=== PATIENT | female | born 1995 | race Two or more races ===

== ENCOUNTER 2018-10-12 17:06 | Emergency (ER) | payer BC ==
[~2018-10-12] VITALS: Ht 154.9 cm; Wt 59.0 kg
[2018-10-12 17:42] VITALS: BP 118/67
== END 2018-10-12 17:59 | disposition home or self-care (01) ==
LOC: ER 17:06
DX: S01.511D Laceration without foreign body of lip, subsequent encounter (principal); F17.200 Nicotine dependence, unspecified, uncomplicated; Z71.6 Tobacco abuse counseling; X58.XXXD Exposure to other specified factors, subsequent encounter
CPT/HCPCS: 99282; 99406; A6402

== ENCOUNTER 2023-01-20 21:16 | Emergency (ER) | payer BC, OTHER ==
[~2023-01-20] VITALS: Ht 167.6 cm; Wt 54.9 kg
[2023-01-20] MEDS ORDERED: IV NS 0.9% 1,000 ML BAG IV ONE (23:00)
[2023-01-20] MEDS ORDERED: MORPHINE SULFATE INJ 2 MG/ML DISP.SYRIN IV ONE (23:00)
[2023-01-20] MEDS ORDERED: ONDANSETRON HCL/PF 4 MG/2 ML VIAL IVP ONE (23:00)
[2023-01-20] MEDS ORDERED: ONDANSETRON HCL/PF 4 MG/2 ML VIAL ONE (23:12)
[2023-01-20] MEDS ORDERED: MORPHINE SULFATE INJ 2 MG/ML DISP.SYRIN ONE (23:12)
[2023-01-20 23:15] LABS: BASOPHILS # (AUTO) 0.1 K/uL (0.0-0.2); BASOPHILS % (AUTO) 0.9 % (0.0-2.0); EOSINOPHILS % (AUTO) 7.7 % (0.0-6.0); HEMATOCRIT 30 % (33-45); HEMOGLOBIN 9.6 g/dL (11.5-14.8); LYMPHOCYTES # (AUTO) 2.1 K/uL (0.8-4.8); LYMPHOCYTES % (AUTO) 15.3 % (20.0-44.0); MEAN CORPUSCULAR HEMOGLOBIN 27 PG (26.0-33.0); MEAN CORPUSCULAR HGB CONC 32 g/dl (31.0-36.0); MEAN CORPUSCULAR VOLUME 85 fL (82-100); MONOCYTES % (AUTO) 7.6 % (2.0-12.0); NEUTROPHILS # (AUTO) 9.3 K/uL (1.8-8.9); NEUTROPHILS % (AUTO) 68.5 % (43.0-81.0); PLATELET COUNT (AUTO) 694 K/uL (150-450); RED BLOOD CELL COUNT(AUTO) 3.57 MIL/uL (4.0-5.2); RED CELL DISTRIBUTION WIDTH 15.1 % (11.5-15.0); WHITE BLOOD COUNT (AUTO) 13.6 K/uL (4.3-11.0)
[2023-01-20 23:33] LABS: BILIRUBIN,TOTAL 0.1 mg/dL (0.2-1.0); CALCIUM, SERUM 8.9 mg/dL (8.5-10.1); TOTAL PROTEIN, SERUM 6.6 g/dL (6.4-8.2)
[2023-01-21] MEDS ORDERED: CT SWABBABLE VALVE TRANS SET 1 EA INFUS.SET MC ONE (00:10)
[2023-01-21] MEDS ORDERED: IV NS 0.9% 250 ML IV ONE (00:10)
[2023-01-21] MEDS ORDERED: IOHEXOL-300 100 ML VIAL IV ONE (00:10)
[2023-01-21 00:46] LABS: APPEARANCE,URINE CLEAR (CLEAR); BILIRUBIN,URINE NEGATIVE (NEGATIVE); BLOOD, URINE NEGATIVE Ery/uL (NEGATIVE); COLOR,URINE YELLOW (YELLOW); KETONES,URINE NEGATIVE (NEGATIVE); LEUKOCYTE ESTERASE ,URINE NEGATIVE (NEGATIVE); NITRITE, URINE NEGATIVE (NEGATIVE); PH,URINE 6.5 (5.0-8.0); PREGNANCY TEST URINE QUAL NEGATIVE (NEGATIVE); PROTEIN,URINE NEGATIVE (NEGATIVE); UGLUCOSE NEGATIVE (NEGATIVE); UROBILINOGEN,URINE 0.2 EU/dL (0.2)
[2023-01-21] MEDS ORDERED: predniSONE 50 MG TABLET PO ONE (01:30)
[2023-01-21] MEDS ORDERED: predniSONE 20 MG TABLET ONE (02:08)
[2023-01-21] MEDS ORDERED: ACETAMINOPHEN ES 500 MG TABLET PO ONE (02:30)
[2023-01-21] MEDS ORDERED: ASPIRIN/ACETAMINOPHEN/CAFFEINE 1 EACH TABLET PO PRN (02:30)
[2023-01-21] MEDS ORDERED: ACETAMINOPHEN ES 500 MG TABLET ONE (02:31)
[2023-01-21] MEDS ORDERED: ONDA4TAB5 PO (04:12)
[2023-01-21] MEDS ORDERED: HYDR-3980 PO (04:12)
[2023-01-21] MEDS ORDERED: PRED50TA PO (04:12)
[2023-01-21 04:26] VITALS: BP 112/79; TEMP 98.5; O2SAT 99
== END 2023-01-21 04:27 | disposition home or self-care (01) ==
LOC: EDBD 21:20 → ER 21:20
DX: K51.90 Ulcerative colitis, unspecified, without complications (principal); R10.30 Lower abdominal pain, unspecified; F17.200 Nicotine dependence, unspecified, uncomplicated
CPT/HCPCS: 99285; 74177; 96374; 96361; 96375; 85025; 80048; 83690; 80076; 36415; 84703; 81003; J2405; J7030; J2270; J7050; Q9967

== ENCOUNTER 2024-04-05 01:52 | Emergency (ER) | payer BC, OTHER ==
[~2024-04-05] VITALS: Ht 157.5 cm; Wt 51.3 kg
[~2024-04-05 01:52] MED LIST: HYDR-3980 PO; ONDA4TAB5 PO; PRED50TA PO
[2024-04-05] MEDS ORDERED: ONDANSETRON HCL/PF 4 MG/2 ML VIAL ONE (03:27)
[2024-04-05] MEDS: ONDANSETRON HCL/PF - ER 4 MG/2 ML VIAL IV ONE (03:28)
[2024-04-05] MEDS: MORPHINE SULFATE INJ 2 MG/ML DISP.SYRIN IV ONE (03:28)
[2024-04-05] MEDS ORDERED: MORPHINE SULFATE INJ 2 MG/ML DISP.SYRIN ONE (03:28)
[2024-04-05] MEDS: IV NS 0.9% 1,000 ML BAG IV ONE (03:28)
[2024-04-05 03:34] LABS: BASOPHILS # (AUTO) 0.1 K/uL (0.0-0.2); BASOPHILS % (AUTO) 0.4 % (0.0-2.0); HEMATOCRIT 30 % (33-45); HEMOGLOBIN 9.9 g/dL (11.5-14.8); LYMPHOCYTES % (AUTO) 6.1 % (20.0-44.0); MEAN CORPUSCULAR HEMOGLOBIN 28 PG (26.0-33.0); MEAN CORPUSCULAR HGB CONC 33 g/dl (31.0-36.0); MEAN CORPUSCULAR VOLUME 84 fL (82-100); MONOCYTES # (AUTO) 0.9 K/uL (0.1-1.30); MONOCYTES % (AUTO) 5.5 % (2.0-12.0); NEUTROPHILS # (AUTO) 14.8 K/uL (1.8-8.9); PLATELET COUNT (AUTO) 872 K/uL (150-450); RED CELL DISTRIBUTION WIDTH 18.5 % (11.5-15.0); WHITE BLOOD COUNT (AUTO) 16.8 K/uL (4.3-11.0)
[2024-04-05 03:36] LABS: APPEARANCE,URINE CLEAR (CLEAR); BILIRUBIN,URINE NEGATIVE (NEGATIVE); BLOOD, URINE 1+ Ery/uL (NEGATIVE); COLOR,URINE YELLOW (YELLOW); KETONES,URINE NEGATIVE (NEGATIVE); LEUKOCYTE ESTERASE ,URINE NEGATIVE (NEGATIVE); NITRITE, URINE NEGATIVE (NEGATIVE); PROTEIN,URINE TRACE mg/dl (NEGATIVE); UGLUCOSE TRACE mg/dL (NEGATIVE); UROBILINOGEN,URINE 0.2 EU/dL (0.2)
[2024-04-05 03:37] LABS: PREGNANCY TEST URINE QUAL NEGATIVE (NEGATIVE)
[2024-04-05 03:52] LABS: ALBUMIN 3.1 g/dL (3.4-5.0); BILIRUBIN,TOTAL 0.1 mg/dL (0.2-1.0); CALCIUM, SERUM 8.8 mg/dL (8.5-10.1); CREATININE 1.7 mg/dL (0.6-1.3); POTASSIUM 4.9 mmol/L (3.5-5.1); TOTAL PROTEIN, SERUM 7.5 g/dL (6.4-8.2)
[2024-04-05 04:46] LABS: ADD URINE CULTURE NO; BACTERIA,URINE 1+ /HPF (None Seen); MUCUS,URINE Few /LPF (None Seen); WBC,URINE NONE SEEN /HPF (0-3)
[2024-04-05 05:35] LABS: ANISOCYTOSIS 1+; BAND % (MANUAL) 15 % (0.0-5.0); LYMPHOCYTES % (MANUAL) 11 % (16-48); MONOCYTES % (MANUAL) 8 % (0-11.0); NEUTROPHILS % (MANUAL) 66 (42-76); PLATELET ESTIMATE INCREASED
[2024-04-05] MEDS ORDERED: AMOX-430 PO (05:42)
[2024-04-05] MEDS ORDERED: ONDA4TAB5 PO (05:42)
[2024-04-05] MEDS ORDERED: AMOX/CLAVULANATE 875 MG TABLET ONE (05:58)
[2024-04-05] MEDS: AMOX/CLAVULANATE 875 MG TABLET PO ONE (05:58)
[2024-04-05 06:06] VITALS: BP 118/77; TEMP 98.4; O2SAT 99
== END 2024-04-05 06:06 | disposition home or self-care (01) ==
LOC: ER 02:02
DX: K51.90 Ulcerative colitis, unspecified, without complications (principal); F17.200 Nicotine dependence, unspecified, uncomplicated; R10.2 Pelvic and perineal pain; Z79.52 Long term (current) use of systemic steroids
CPT/HCPCS: 99285; 74176; 96374; 96361; 96375; 85025; 80048; 87086; 83690; 80076; 84703; 81001; 36415; 84702; 85007; J2405 ×2; J7030; J2270